=== PATIENT | female | born 2005 | race Caucasian/White ===

== ENCOUNTER 2023-08-28 14:38 | Emergency (ER) | payer BC, SELFPAY ==
[2023-08-28 15:00] VITALS: BP 139/86; PULSE 100; RESP 18; TEMP 36.5; O2SAT 100
--- NOTE | 2023-08-28 15:31 | ED.URI ---
HPI - URI/Sore Throat General Chief Complaint: Upper Respiratory Infection Stated Complaint: sorethroat Time Seen by Provider: 08/28/23 15:31 Source: patient Mode of arrival: ambulatory Limitations: no limitations History of Present Illness HPI Narrative: 18-year-old female presents with complaint of sore throat, body aches, fatigue and headaches for the past 4 days. Afebrile. 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 Patient also reports history of mono and symptoms seem similar. Patient is Well-appearing, smiling and talkative. all systems reviewed and negative except as noted above. Review of Systems Review of Systems: CONSTITUTIONAL: Denies fever, chills, or sweats. reports fatigue. EYES: Denies visual changes, redness, or discharge. ENT: Denies rhinorrhea, congestion . Reports sore throat. Denies otalgia. CARDIOVASCULAR: Denies chest pain, palpitations, or edema. RESPIRATORY: Denies cough or dyspnea. GASTROINTESTINAL: Denies abdominal pain, nausea, vomiting, or diarrhea. GENITOURINARY: Denies dysuria or hematuria. SKIN: Denies rash or itching. MUSCULOSKELETAL: Denies back pain, joint pain. Reports myalgia. NEUROLOGIC: Denies headache, numbness, or weakness. PSYCHIATRIC: Denies anxiety or depression. All other systems reviewed are negative, except as documented in HPI. PMFSH Comments At time of signature, agree with nursing past medical, surgical, social and family history. There is no relevant family history pertinent to the presenting complaint. Exam Narrative: GENERAL: This is a well-nourished, well-developed patient, in no apparent distress. HEAD: normocephalic, atraumatic. EYES: PERRL. Sclera clear/white. Vision is grossly intact. EARS: External ears normal, auditory canals clear and without drainage, TMs normal without perforation. Hearing grossly intact. NOSE: External nose normal with no obvious nasal discharge, nares without redness, no rhinorrhea. THROAT: Mucous membranes moist, clear postnasal drainage Without erythema or tonsillar exudates. NECK: Neck supple, non-tender without lymphadenopathy, masses or thyromegaly. CARDIOVASCULAR: Regular rate and rhythm without murmurs, gallops, or rubs. RESPIRATORY: Clear to auscultation. Breath sounds equal bilaterally. No wheezes, rales, or rhonchi. SKIN: warm, Dry, intact with no suspicious lesions or rash, good texture and turgor. NEURO: awake, alert, and oriented to person, place and time. There were no obvious focal neurologic abnormalities. EXTREMITIES: No joint tenderness, effusion, or edema noted. Course Course Level of Care: Express Care Visit Vital Signs Vital signs: Vital Signs Temperature 36.5 C 08/28/23 15:00 Pulse Rate 100 08/28/23 15:00 Respiratory Rate 18 08/28/23 15:00 Blood Pressure 139/86 08/28/23 15:00 Pulse Oximetry 100 08/28/23 15:00 Oxygen Delivery Room Air 08/28/23 15:00 Temperature 36.5 C 08/28/23 15:00 Pulse Rate 100 08/28/23 15:00 Respiratory Rate 18 08/28/23 15:00 Blood Pressure 139/86 08/28/23 15:00 Pulse Oximetry 100 08/28/23 15:00 Oxygen Delivery Room Air 08/28/23 15:00 Reviewed MDM - URI/Sore Throat MDM Narrative Medical decision making narrative: Patient is aware of diagnosis, understands and agrees to treatment plan. Anticipatory guidance given. Patient agrees to follow-up as directed and is aware of reasons to seek care at the emergency department. Portions of this record may have been created with voice recognition software negative strep and mono testing. Patient is well-appearing. Will to wait for strep culture prior to treating with antibiotics. Patient agrees with plan of care. Differential Diagnosis Differential diagnosis: Likely pharyngitis Lab Data Labs: Strep Screen Presumptive Negative *(Reference Range: Negative)* [place] Screen
== END 2023-08-28 16:05 | disposition home or self-care (01) ==
PROVIDERS: Emergency Provider Nurse Practitioner Family
DX: J02.9 Acute pharyngitis, unspecified (principal)
CPT/HCPCS: 36416; 86308; 87081; 87880; 99213; G0463